=== PATIENT | male | born 1935 | race Caucasian/White ===

== ENCOUNTER 2020-08-03 04:49 | Emergency (ER) | payer OTHER ==
[2020-08-03 05:08] VITALS: BP 136/27; PULSE 113; BMI 24.2
[2020-08-03] MEDS ORDERED: AMIODARONE HCL 150 MG/3 ML VIAL ONE (05:10)
[2020-08-03] MEDS ORDERED: CALCIUM CHLORIDE 1 GM/10 ML *DISP.SYRIN ONE (05:10)
[2020-08-03] MEDS ORDERED: ATROPINE SULFATE 1 MG/10 ML DISP.SYRIN ONE (05:11)
[2020-08-03] MEDS ORDERED: SODIUM BICARBONATE 8.4% 50 MEQ/50 ML VIAL ONE (05:11)
[2020-08-03] MEDS ORDERED: EPINEPHrine 1:10,000 (P-F SYR) 1 MG/10 ML DISP.SYRIN ONE (05:11)
--- NOTE | 2020-08-03 05:15 | PDOC ---
History of Present Illness - General Chief Complaint: Cardiac Arrest Stated Complaint: CARDIAC ARREST Time Seen by Provider: 08/03/20 05:07 History Source: EMS Exam Limitations: Clinical Condition - History of Present Illness Initial Comments: 08/03/20 05:08 84M BIBEMS from home after calling stating he felt as if he was having a heart attack. Pt unresponsive on FD and EMS arrival. EMS found patient in PEA / Asystole / Bradycardia and received rounds of epinephrine, bicarb, calcium, and amio on the field and was paced. Estimated time down prior to arrival was 60 minutes. Pt arrived with jono attached and AICD delivering shocks. ACLS continued on arrival. Resuscitative measures ceased after there was no palpable pulse despite multiple rounds of epinephrine, bicarb, calcium in the ED. See code sheet for details. 08/03/20 05:28 AR #[id number] declined case message left next of kin in system No PCP in system Past History - Medical History Allergies/Adverse Reactions: Allergies Allergy/AdvReac Type Severity Reaction Status Date / Time No Known Allergies Allergy Verified 07/08/16 15:00 Home Medications: Ambulatory Orders Acetaminophen [Tylenol] 650 mg PO QID PRN 07/08/16 Amiodarone HCl 200 mg PO DAILY 07/08/16 Apixaban [Eliquis -] 2.5 mg PO BID 07/08/16 Aspirin [ASA -] 81 mg PO DAILY 07/08/16 Atorvastatin Ca [Lipitor] 40 mg PO HS 07/08/16 Cefpodoxime Proxetil [Vantin -] 200 mg PO Q12H 07/08/16 Eplerenone 25 mg PO DAILY 07/08/16 Finasteride [Proscar] 5 mg PO DAILY 07/08/16 Furosemide [Lasix -] 20 mg PO BID 07/08/16 Metoprolol Succinate [Toprol XL -] 25 mg PO DAILY 07/08/16 Mexiletine HCl 150 mg PO TID 07/08/16 Tamsulosin HCl 0.4 mg PO HS 07/08/16 Ticagrelor [Brilinta] 90 mg PO BID 07/08/16 Cardiac Disorders: Yes HTN: Yes Hypercholesterolemia: Yes - Surgical History Cardiac Surgery: Yes (PACEMAKER 06/2016) - Psycho-Social/Smoking History Smoking History: Unknown if ever smoked *Physical Exam - Vital Signs Last Vital Signs Temp Pulse Resp BP Pulse Ox 113 H 42 H 136/27 L 0 L 08/03/20 05:01 08/03/20 05:01 08/03/20 05:01 08/03/20 05:01 Discharge - Discharge Information Problems reviewed: Yes Clinical Impression/Diagnosis: Cardiac arrest Disposition: - Follow up/Referral - Patient Discharge Instructions - Post Discharge Activity
--- NOTE | 2020-08-03 05:21 | PDOC ---
Attending Attestation - Resident Resident Name: Ed Contreras - ED Attending Attestation I have performed the following: I have examined & evaluated the patient, The case was reviewed & discussed with the resident, I agree w/resident's findings & plan - HPI HPI: 08/03/20 05:28 Pt called 911 and reported that he felt like he was having a heart attack. FIRE and EMS came and he ws on the floor agonal. Pt lost pulse and he was placed on jono heart pump external; pt has an AICD that was defibrillating Pt was intubated successfully. Pt has PEA when jono is stopped. Pt got epi and amiodarone. abd bicarb in the field. - Physicial Exam PE: 08/03/20 05:43 Pt cold and pulseness here. unresponsive and in PEA. Coded for 15 min here 3 rounds of epinephrine, 2 bicarbonates, calcium chloride. Pt called time of at 4:58, as no heart movement on sono. - Medical Decision Making 08/03/20 05:20 Release # from [place] is [id number] 08/03/20 05:27 2 messages left for Ankita Baires at [phone]; she is listed as of the patient. Discharge - Discharge Information Problems reviewed: Yes Clinical Impression/Diagnosis: Cardiac arrest Condition: Disposition: - Follow up/Referral - Patient Discharge Instructions - Post Discharge Activity
--- OUTSIDE RECORDS SUMMARY | 2020-08-03 05:42 | XMS ---
:1935 [facility] Support Name Relationship Address Phone RE Unavailable Unavailable Unavailable GISSELLE MITCHELL [address] [phone] [place] [address] Re-disclosure Warning The records that you are about to access may contain information from federally- assisted alcohol or drug abuse programs. If such information is present, then the following federally mandated warning applies: This information has been disclosed to you from records protected by federal confidentiality rules (42 CFR part 2). The federal rules prohibit you from making any further disclosure of this information unless further disclosure is expressly permitted by the written consent of the person to whom it pertains or as otherwise permitted by 42 CFR part 2. A general authorization for the release of medical or other information is NOT sufficient for this purpose. The Federal rules restrict any use of the information to criminally investigate or prosecute any alcohol or drug abuse patient.The records that you are about to access may contain highly sensitive health information, the redisclosure of which is protected by Article 27-F of the [facility] Public Health law. If you continue you may haveaccess to information: Regarding HIV / AIDS; Provided by facilities licensed or operated by the [facility] Office of Mental Health; or Provided by the [facility] Office for People With Developmental Disabilities. If such information is present, then the following [facility] mandated warning applies: This information has been disclosed to you from confidential records which are protected by state law. State law prohibits you from making any further disclosure of this information without the specific written consent of the person to whom it pertains, or as otherwise permitted by law. Any unauthorized further disclosure in violation of state law may result in a fine or shelter sentence or both. A general authorization for the release of medical or other information is NOT sufficient authorization for further disclosure. Insurance Providers Payer name Policy type Policy ID Covered Covered republican's Policy P mattie / Coverage republican ID relationship to [employer] ormation type ed[place] [employer] [id number] PLUS PLAN MEDICARE [id number]
== END 2020-08-03 07:10 | disposition expired ==
LOC: JER 04:49
DX: I46.9 Cardiac arrest, cause unspecified (principal)
CPT/HCPCS: 82962; 99283-25